=== PATIENT | male | born 1940 | race Caucasian/White ===

== ENCOUNTER 2021-09-07 12:11 | Outpatient (CLI) | payer MEDICARE | END 2021-09-07 12:12 | disposition home or self-care (01) | LOC: TBSIIMAG 12:11 | PROVIDERS: ATTEND Neurological Surgery | DX: M47.812 Spondylosis without myelopathy or radiculopathy, cervical region (principal); M47.816 Spondylosis without myelopathy or radiculopathy, lumbar region; M48.061 Spinal stenosis, lumbar region without neurogenic claudication; M51.36 Other intervertebral disc degeneration, lumbar region; M51.37 Other intervertebral disc degeneration, lumbosacral region; M48.07 Spinal stenosis, lumbosacral region; M48.02 Spinal stenosis, cervical region; R60.0 Localized edema | CPT/HCPCS: 72141; 72148 ==

== ENCOUNTER 2021-10-10 12:58 | Outpatient (CLI) | payer MEDICARE ==
[2021-10-10 14:39] LABS: Hemoglobin 12.2 g/dL (13.5-17.5); Mean Corpuscular HGB CONC 34.6 g/dL (32.0-36.0); Mean Corpuscular Hemoglobin 32.5 pg (27.0-33.0); Mean Corpuscular Volume 94.1 fl (81.2-95.1); Mean Platelet Volume 10.5 fl (7.4-10.4); Platelet Count 215 10x3/uL (150-450); RBC Distribution Width 12.6 % (11.5-14.5); Red Blood Cell (RBC) Count 3.75 10x6/uL (4.32-5.72); White Blood Cell (WBC) Count 10.1 10x3/uL (3.5-10.5)
[2021-10-10 15:08] LABS: Anion Gap 14 mmol/L (10-20); BUN (Urea Nitrogen) 41 mg/dL (8.4-25.7); Calc. Creatinine Clearance 0 mL/min (70-130); Calcium 10.1 mg/dL (7.8-10.44); Carbon Dioxide 21 mmol/L (23-31); Chloride 109 mmol/L (98-107); Estimated GFR 36; Glucose 183 mg/dL (83-110); Potassium 4.6 mmol/L (3.5-5.1); Sodium 139 mmol/L (136-145)
== END 2021-10-10 12:59 | disposition home or self-care (01) ==
LOC: LABBT 12:58
PROVIDERS: ATTEND Neurological Surgery
DX: Z01.818 Encounter for other preprocedural examination (principal); M47.12 Other spondylosis with myelopathy, cervical region; Z20.822 Contact with and (suspected) exposure to COVID-19
CPT/HCPCS: 80048; 85027; 87811; 93005; 93010

== ENCOUNTER 2021-10-10 13:00 | Inpatient (IN) | payer MEDICARE ==
[2021-10-15] MEDS ORDERED: Sodium Chloride 0.9% 100 ML ONE (08:34)
[2021-10-15] MEDS ORDERED: CEFAZOLIN 2 GM VIAL ONE (08:34)
[2021-10-15] MEDS ORDERED: Promethazine 25 MG TAB PO PRN (09:27)
[2021-10-15] MEDS ORDERED: Acetaminophen 325 MG TAB PO PRN (09:27)
[2021-10-15] MEDS ORDERED: Acetaminophen/Codeine 30-300mg Tablet PO PRN ×2 (09:27)
[2021-10-15] MEDS ORDERED: traMADol HCl 50 MG TAB PO PRN (09:27)
[2021-10-15] MEDS ORDERED: Ondansetron PF 4 MG/2 ML Vial IVP PRN (09:27)
[2021-10-15] MEDS ORDERED: Mag-Al 1200 mg/1200 mg/30 ML UDCUP PO PRN (09:27)
[2021-10-15] MEDS ORDERED: Cyclobenzaprine 10 MG TAB PO PRN (09:27)
[2021-10-15] MEDS ORDERED: Morphine 2 MG/ML VIAL SLOW IVP PRN (09:27)
[2021-10-15] MEDS ORDERED: Albuterol Sulfate 2.5 mg/3 ml Neb NEB PRN (09:30)
[2021-10-15] MEDS ORDERED: Dextrose 50% Abboject 50 ML SYRINGE SLOW IVP PRN (09:31)
[2021-10-15] MEDS ORDERED: Dextrose 5% in Water 1,000 ML IV PRN (09:31)
[2021-10-15] MEDS ORDERED: Bacitracin Zinc Ointment 30 gm TUBE ONE (09:49)
[2021-10-15] MEDS ORDERED: fentaNYL Citrate/PF 100 MCG/2 ML SYRINGE ONE ×2 (10:25→13:15)
[2021-10-15] MEDS ORDERED: Clindamycin/D5W 900 mg/50 ml Premix Bag ONE (10:39)
[2021-10-15] MEDS ORDERED: ePHEDrine 50 MG/ML VIAL ONE (10:51)
[2021-10-15] MEDS ORDERED: Rocuronium Bromide 10 MG/ML (10ML VIAL) ONE (10:51)
[2021-10-15] MEDS ORDERED: Ketorolac Tromethamine 30 MG/ML VIAL ONE (10:51)
[2021-10-15] MEDS ORDERED: Lidocaine 1% PF 5 ML VIAL ONE (10:51)
[2021-10-15] MEDS ORDERED: Phenylephrine 10 MG/ML VIAL ONE (10:51)
[2021-10-15] MEDS ORDERED: Dexamethasone 20 MG/5 ML VIAL ONE (10:51)
[2021-10-15] MEDS ORDERED: Ondansetron PF 4 MG/2 ML Vial ONE (10:51)
[2021-10-15] MEDS ORDERED: PROPOFOL 200 MG/20 ML VIAL ONE (10:51)
[2021-10-15] MEDS ORDERED: SUGAMMADEX SODIUM 200 MG/2 ML VIAL ONE ×2 (11:58→13:00)
[2021-10-15] MEDS ORDERED: Fentanyl 100 MCG/2 ML VIAL ONE (13:47)
[2021-10-15] MEDS ORDERED: Ondansetron HCl/PF 4 MG/2 ML Vial IVP PRN (14:39)
[2021-10-15] MEDS ORDERED: Promethazine HCl 25 MG/ML VIAL IVPB PRN (14:39)
[2021-10-15] MEDS ORDERED: Promethazine HCl 25 MG/ML VIAL IM PRN (14:39)
[2021-10-15 17:03] VITALS: BMI 29.3
[2021-10-15] MEDS: Clindamycin/D5W 900 MG in Premix Bag 1 BAG IVPB SCH ×2 (18:24→21:33)
[2021-10-15] MEDS: Sodium Chloride 0.9% 1,000 ML IV SCH ×2 (18:24→19:59)
[2021-10-15] MEDS ORDERED: Labetalol HCl 100 MG/20 ML VIAL SLOW IVP PRN (20:40)
[2021-10-15] MEDS ORDERED: Lisinopril/Hydrochlorothiazide 20 mg/12.5 mg Tablet PO SCH (21:00)
[2021-10-15] MEDS: Lisinopril/Hydrochlorothiazide 20 mg/12.5 mg Tablet PO SCH (21:33)
[2021-10-16 05:25] LABS: #Lymphocytes 2.1 thou/uL (1.20-3.40); #Monocytes 1.9 thou/uL (0.11-0.59); #Neutrophils 12.4 thou/uL (1.40-6.50); %Basophils 0.1 % (0.0-1.0); %Eosinophils 0.2 % (0.0-10.0); %Lymphocytes 12.8 % (21.0-51.0); %Monocytes 11.4 % (0.0-10.0); %Neutrophils 75.6 % (42.0-75.0); Hemoglobin 12.6 g/dL (14.0-18.0); Mean Corpuscular HGB CONC 33.3 g/dL (32.0-36.0); Mean Corpuscular Hemoglobin 33.5 pg (27.0-31.0); Mean Platelet Volume 7.3 fL (7.4-10.4); Platelet Count 226 thou/uL (130-400); RBC Distribution Width 11.5 % (11.5-14.5); Red Blood Cell (RBC) Count 3.77 mill/uL (4.70-6.10); White Blood Cell (WBC) Count 16.4 thou/uL (4.8-10.8)
[2021-10-16] MEDS: Clindamycin/D5W 900 MG in Premix Bag 1 BAG IVPB SCH ×3 (05:30→21:26)
[2021-10-16] MEDS: Tamsulosin HCl 0.4 MG CAP PO SCH (05:30)
[2021-10-16 05:42] LABS: Anion Gap 18 mmol/L (10-20); BUN (Urea Nitrogen) 36 mg/dL (8.4-25.7); Calc. Creatinine Clearance 32 mL/min (70-130); Calcium 9.2 mg/dL (7.8-10.44); Carbon Dioxide 20 mmol/L (23-31); Chloride 104 mmol/L (98-107); Estimated GFR 33; Glucose 158 mg/dL (83-110); Potassium 4.5 mmol/L (3.5-5.1); Sodium 137 mmol/L (136-145)
[2021-10-16] MEDS: HYDROcodone/Acetaminophen 10/325 mg Tablet PO PRN ×2 (07:17→11:35)
[2021-10-16] MEDS: Finasteride 5 MG TAB PO SCH (08:33)
[2021-10-16] MEDS ORDERED: Lisinopril/Hydrochlorothiazide 20 mg/12.5 mg Tablet PO SCH (09:00)
[2021-10-16] MEDS ORDERED: Non-Formulary Item 1 EACH (Biotin [Biotin] 5,000 MCG Tab.Rapdis) PO SCH (09:00)
[2021-10-16] MEDS ORDERED: Non-Formulary Item 1 EACH (Glucosamine/D3/Boswellia Serra [Osteo Bi-Flex One Per Day] 1 T PO SCH (09:00)
[2021-10-16] MEDS ORDERED: Loratadine 10 MG TAB PO SCH ×2 (09:00→10:30)
[2021-10-16] MEDS ORDERED: Non-Formulary Item 1 EACH (Fexofenadine Hcl [Fexofenadine Hcl] 180 MG Tablet) PO SCH (09:00)
[2021-10-16] MEDS ORDERED: Non-Formulary Item 1 EACH (Multivitamin [Multivitamins] 1 TABLET Tablet) PO SCH (09:00)
[2021-10-16] MEDS ORDERED: Dextrose 5% in Water 1,000 ML IV PRN (09:29)
[2021-10-16] MEDS ORDERED: Dextrose 50% Abboject 50 ML SYRINGE SLOW IVP PRN (09:29)
[2021-10-16] MEDS: Sodium Chloride 0.9% 1,000 ML IV SCH (10:18)
[2021-10-16] MEDS: Lisinopril/Hydrochlorothiazide 20 mg/12.5 mg Tablet PO SCH ×2 (10:20→21:26)
[2021-10-16] MEDS: Multivit, Therapeutic 1 TAB PO SCH (10:23)
[2021-10-16] MEDS: Meloxicam 7.5 MG TAB PO SCH (10:24)
[2021-10-16] MEDS: Chloraseptic Spray 180 ml Bottle PO PRN (22:35)
[2021-10-17] MEDS: HYDROcodone/Acetaminophen 10/325 mg Tablet PO PRN ×2 (03:00→16:38)
[2021-10-17] MEDS: Sodium Chloride 0.9% 1,000 ML IV SCH ×2 (03:37→14:49)
[2021-10-17] MEDS: Clindamycin/D5W 900 MG in Premix Bag 1 BAG IVPB SCH ×2 (06:42→13:52)
[2021-10-17] MEDS: Tamsulosin HCl 0.4 MG CAP PO SCH (06:42)
[2021-10-17] MEDS ORDERED: BOSWELLIA SERRA PO SCH (09:00)
[2021-10-17] MEDS ORDERED: GLUCOSAMINE PO SCH (09:00)
[2021-10-17] MEDS ORDERED: [UNRECOGNIZED DRUG - OTHER] PO SCH (09:00)
[2021-10-17] MEDS ORDERED: D3 PO SCH (09:00)
[2021-10-17] MEDS: Finasteride 5 MG TAB PO SCH (09:57)
[2021-10-17] MEDS: Multivit, Therapeutic 1 TAB PO SCH (09:57)
[2021-10-17] MEDS: Meloxicam 7.5 MG TAB PO SCH (09:57)
[2021-10-17] MEDS: Lisinopril/Hydrochlorothiazide 20 mg/12.5 mg Tablet PO SCH ×2 (09:57→21:09)
[2021-10-17] MEDS: Dexamethasone 4 mg/ml Vial SLOW IVP SCH ×3 (10:08→21:09)
[2021-10-17 10:18] LABS: #Eosinphils 0.1 thou/uL (0.0-0.7); #Lymphocytes 2.7 thou/uL (1.20-3.40); #Monocytes 1.3 thou/uL (0.11-0.59); %Basophils 0.2 % (0.0-1.0); %Eosinophils 1.1 % (0.0-10.0); %Lymphocytes 20.3 % (21.0-51.0); %Monocytes 9.7 % (0.0-10.0); %Neutrophils 68.7 % (42.0-75.0); Hemoglobin 11.5 g/dL (14.0-18.0); Mean Corpuscular HGB CONC 32.8 g/dL (32.0-36.0); Mean Corpuscular Hemoglobin 33.1 pg (27.0-31.0); Mean Platelet Volume 7.5 fL (7.4-10.4); Platelet Count 204 thou/uL (130-400); RBC Distribution Width 11.5 % (11.5-14.5); Red Blood Cell (RBC) Count 3.48 mill/uL (4.70-6.10); White Blood Cell (WBC) Count 13.1 thou/uL (4.8-10.8)
[2021-10-17 10:34] LABS: Anion Gap 16 mmol/L (10-20); BUN (Urea Nitrogen) 34 mg/dL (8.4-25.7); Calc. Creatinine Clearance 37 mL/min (70-130); Carbon Dioxide 24 mmol/L (23-31); Chloride 99 mmol/L (98-107); Estimated GFR 39; Glucose 123 mg/dL (83-110); Potassium 4.5 mmol/L (3.5-5.1); Sodium 134 mmol/L (136-145)
[2021-10-17] MEDS: HumaLOG 300 UNITS/3 ML VIAL SC PRN ×2 (12:20→18:08)
[2021-10-17] MEDS ORDERED: Polyethylene Glycol 3350 17 GM Packet PO PRN (19:52)
[2021-10-17] MEDS: Chloraseptic Spray 180 ml Bottle PO PRN (21:09)
[2021-10-18] MEDS: HYDROcodone/Acetaminophen 10/325 mg Tablet PO PRN ×2 (00:06→06:51)
[2021-10-18] MEDS: Dexamethasone 4 mg/ml Vial SLOW IVP SCH ×2 (03:55→09:00)
[2021-10-18] MEDS: Sodium Chloride 0.9% 1,000 ML IV SCH ×2 (04:18→19:06)
[2021-10-18] MEDS: Tamsulosin HCl 0.4 MG CAP PO SCH (05:32)
[2021-10-18 05:55] LABS: #Lymphocytes 1.2 thou/uL (1.20-3.40); #Monocytes 0.5 thou/uL (0.11-0.59); %Basophils 0.1 % (0.0-1.0); %Eosinophils 0.1 % (0.0-10.0); %Lymphocytes 10.5 % (21.0-51.0); %Monocytes 4.1 % (0.0-10.0); %Neutrophils 85.2 % (42.0-75.0); Mean Corpuscular HGB CONC 33.5 g/dL (32.0-36.0); Mean Corpuscular Hemoglobin 33.6 pg (27.0-31.0); Mean Platelet Volume 7.5 fL (7.4-10.4); Platelet Count 213 thou/uL (130-400); RBC Distribution Width 11.3 % (11.5-14.5); Red Blood Cell (RBC) Count 3.56 mill/uL (4.70-6.10); White Blood Cell (WBC) Count 11.7 thou/uL (4.8-10.8)
[2021-10-18 06:07] LABS: Anion Gap 17 mmol/L (10-20); BUN (Urea Nitrogen) 45 mg/dL (8.4-25.7); Calc. Creatinine Clearance 35 mL/min (70-130); Calcium 9.5 mg/dL (7.8-10.44); Carbon Dioxide 21 mmol/L (23-31); Chloride 102 mmol/L (98-107); Estimated GFR 37; Glucose 193 mg/dL (83-110); Potassium 4.9 mmol/L (3.5-5.1); Sodium 135 mmol/L (136-145)
[2021-10-18] MEDS: Chloraseptic Spray 180 ml Bottle PO PRN (06:51)
[2021-10-18] MEDS: HumaLOG 300 UNITS/3 ML VIAL SC PRN ×2 (06:51→12:11)
[2021-10-18] MEDS: Finasteride 5 MG TAB PO SCH (08:56)
[2021-10-18] MEDS: Meloxicam 7.5 MG TAB PO SCH (08:56)
[2021-10-18] MEDS: Lisinopril/Hydrochlorothiazide 20 mg/12.5 mg Tablet PO SCH ×2 (08:56→19:28)
[2021-10-18] MEDS: Multivit, Therapeutic 1 TAB PO SCH (08:56)
[2021-10-18] MEDS: Loratadine 10 MG TAB PO SCH (08:56)
[2021-10-18] MEDS: Polyethylene Glycol 3350 17 GM Packet PO SCH (09:00)
[2021-10-18] MEDS ORDERED: Lactated Ringer's 500 ML IV SCH ×2 (19:00→21:30)
[2021-10-18] MEDS ORDERED: hydrALAZINE 20 MG/ML VIAL SLOW IVP PRN (20:33)
[2021-10-19] MEDS: Dexamethasone 4 mg/ml Vial SLOW IVP SCH ×2 (00:12→20:26)
[2021-10-19] MEDS: HYDROcodone/Acetaminophen 10/325 mg Tablet PO PRN ×2 (03:30→14:56)
[2021-10-19 05:23] LABS: #Lymphocytes 1.4 thou/uL (1.20-3.40); #Monocytes 0.8 thou/uL (0.11-0.59); #Neutrophils 10.5 thou/uL (1.40-6.50); %Basophils 0.1 % (0.0-1.0); %Eosinophils 0.1 % (0.0-10.0); %Lymphocytes 10.9 % (21.0-51.0); %Monocytes 6.4 % (0.0-10.0); %Neutrophils 82.6 % (42.0-75.0); Hemoglobin 11.5 g/dL (14.0-18.0); Mean Corpuscular HGB CONC 31.6 g/dL (32.0-36.0); Mean Corpuscular Hemoglobin 31.5 pg (27.0-31.0); Mean Corpuscular Volume 99.8 fL (78.0-98.0); Mean Platelet Volume 7.5 fL (7.4-10.4); Platelet Count 250 thou/uL (130-400); RBC Distribution Width 11.3 % (11.5-14.5); Red Blood Cell (RBC) Count 3.65 mill/uL (4.70-6.10); White Blood Cell (WBC) Count 12.8 thou/uL (4.8-10.8)
[2021-10-19 05:38] LABS: Anion Gap 14 mmol/L (10-20); BUN (Urea Nitrogen) 54 mg/dL (8.4-25.7); Calc. Creatinine Clearance 36 mL/min (70-130); Calcium 9.5 mg/dL (7.8-10.44); Carbon Dioxide 23 mmol/L (23-31); Chloride 103 mmol/L (98-107); Estimated GFR 38; Glucose 218 mg/dL (83-110); Potassium 4.9 mmol/L (3.5-5.1); Sodium 135 mmol/L (136-145)
[2021-10-19] MEDS: Tamsulosin HCl 0.4 MG CAP PO SCH (06:19)
[2021-10-19] MEDS: HumaLOG 300 UNITS/3 ML VIAL SC PRN ×4 (06:20→20:26)
[2021-10-19] MEDS ORDERED: Dexamethasone 4 mg/ml Vial SLOW IVP SCH (08:00)
[2021-10-19] MEDS: Multivit, Therapeutic 1 TAB PO SCH (08:54)
[2021-10-19] MEDS: Polyethylene Glycol 3350 17 GM Packet PO SCH (08:54)
[2021-10-19] MEDS: Lisinopril/Hydrochlorothiazide 20 mg/12.5 mg Tablet PO SCH ×2 (08:55→20:24)
[2021-10-19] MEDS: Finasteride 5 MG TAB PO SCH (08:55)
[2021-10-19] MEDS: Meloxicam 7.5 MG TAB PO SCH (08:55)
[2021-10-19] MEDS: NPH, Human Insulin Isophane 300 UNIT/3 ML VIAL SC SCH (20:28)
[2021-10-20 05:07] LABS: #Basophils 0.1 thou/uL (0.0-0.2); #Lymphocytes 2.3 thou/uL (1.20-3.40); #Neutrophils 9.1 thou/uL (1.40-6.50); %Basophils 0.6 % (0.0-1.0); %Eosinophils 0.1 % (0.0-10.0); %Lymphocytes 18.3 % (21.0-51.0); %Monocytes 8.2 % (0.0-10.0); %Neutrophils 72.7 % (42.0-75.0); Hemoglobin 12.2 g/dL (14.0-18.0); Mean Corpuscular HGB CONC 33.8 g/dL (32.0-36.0); Mean Platelet Volume 7.5 fL (7.4-10.4); Platelet Count 280 thou/uL (130-400); RBC Distribution Width 11.2 % (11.5-14.5); Red Blood Cell (RBC) Count 3.59 mill/uL (4.70-6.10); White Blood Cell (WBC) Count 12.5 thou/uL (4.8-10.8)
[2021-10-20 05:31] LABS: Anion Gap 15 mmol/L (10-20); BUN (Urea Nitrogen) 56 mg/dL (8.4-25.7); Calc. Creatinine Clearance 41 mL/min (70-130); Calcium 9.5 mg/dL (7.8-10.44); Carbon Dioxide 23 mmol/L (23-31); Chloride 103 mmol/L (98-107); Estimated GFR 44; Glucose 165 mg/dL (83-110); Potassium 4.7 mmol/L (3.5-5.1); Sodium 136 mmol/L (136-145)
[2021-10-20] MEDS: Tamsulosin HCl 0.4 MG CAP PO SCH (05:58)
[2021-10-20] MEDS: HumaLOG 300 UNITS/3 ML VIAL SC PRN (05:59)
[2021-10-20 06:48] VITALS: BP 143/85; TEMP 98.1
[2021-10-20] MEDS: Lisinopril/Hydrochlorothiazide 20 mg/12.5 mg Tablet PO SCH (08:21)
[2021-10-20] MEDS: Dexamethasone 4 mg/ml Vial SLOW IVP SCH (08:21)
[2021-10-20] MEDS: Meloxicam 7.5 MG TAB PO SCH (08:21)
[2021-10-20] MEDS: Polyethylene Glycol 3350 17 GM Packet PO SCH (08:21)
[2021-10-20] MEDS: Finasteride 5 MG TAB PO SCH (08:22)
[2021-10-20] MEDS: Loratadine 10 MG TAB PO SCH (08:22)
[2021-10-20] MEDS: Multivit, Therapeutic 1 TAB PO SCH (08:22)
[2021-10-20] MEDS: NPH, Human Insulin Isophane 300 UNIT/3 ML VIAL SC SCH (08:33)
[2021-10-20] MEDS: HYDROcodone/Acetaminophen 10/325 mg Tablet PO PRN ×2 (10:45→18:10)
== END 2021-10-20 18:25 | disposition home health service (06) | DRG 454 ==
LOC: SURG A 10-15 07:25 → MSONC 10-15 16:22
PROVIDERS: ADMIT Physician Assistant; ATTEND Hospitalist
PROC: 0RG20A0 Fusion of 2 or more Cervical Vertebral Joints with Interbody Fusion Device, Anterior Approach, Anterior Column, Open Approach (ICD-10-PCS; principal; 2021-10-15)
PROC: 0RG2071 Fusion of 2 or more Cervical Vertebral Joints with Autologous Tissue Substitute, Posterior Approach, Posterior Column, Open Approach (ICD-10-PCS; 2021-10-15)
PROC: 0RB30ZZ Excision of Cervical Vertebral Disc, Open Approach (ICD-10-PCS; 2021-10-15)
DX: M47.12 Other spondylosis with myelopathy, cervical region (principal); N17.9 Acute kidney failure, unspecified; Z20.822 Contact with and (suspected) exposure to COVID-19; I10 Essential (primary) hypertension; N40.0 Benign prostatic hyperplasia without lower urinary tract symptoms; R49.0 Dysphonia; E11.9 Type 2 diabetes mellitus without complications; J44.9 Chronic obstructive pulmonary disease, unspecified; Z88.1 Allergy status to other antibiotic agents; Z91.030 Bee allergy status; Z91.018 Allergy to other foods; Z88.0 Allergy status to penicillin; Z88.2 Allergy status to sulfonamides; Z79.899 Other long term (current) drug therapy; Z79.51 Long term (current) use of inhaled steroids; Z79.84 Long term (current) use of oral hypoglycemic drugs
CPT/HCPCS: 36415; 36416; 76000; 80048; 85025; C1713; C1768; C1776; J0360; J0690; J1100; J1815; J1885; J2370; J2405; J2704; J3010; J3370; J3490; J7120

== ENCOUNTER 2021-10-31 12:58 | Outpatient (CLI) | payer MEDICARE | END 2021-10-31 12:59 | disposition home or self-care (01) | LOC: TBSIIMAG 12:58 | PROVIDERS: ATTEND Neurological Surgery | DX: M47.12 Other spondylosis with myelopathy, cervical region (principal); Z98.1 Arthrodesis status | CPT/HCPCS: 72040 ==

== ENCOUNTER 2022-01-01 14:09 | Outpatient (CLI) | payer MEDICARE | END 2022-01-01 14:10 | disposition home or self-care (01) | LOC: TBSIIMAG 14:09 | PROVIDERS: ATTEND Neurological Surgery | DX: M47.12 Other spondylosis with myelopathy, cervical region (principal); Z98.1 Arthrodesis status | CPT/HCPCS: 72040 ==

== ENCOUNTER 2022-06-20 09:42 | Outpatient (CLI) | payer MEDICARE | END 2022-06-20 09:43 | disposition home or self-care (01) | LOC: TBSIIMAG 09:42 | PROVIDERS: ATTEND Neurological Surgery | DX: M54.2 Cervicalgia (principal); M54.50 Low back pain, unspecified; M47.816 Spondylosis without myelopathy or radiculopathy, lumbar region; M51.36 Other intervertebral disc degeneration, lumbar region; M51.35 Other intervertebral disc degeneration, thoracolumbar region; M46.06 Spinal enthesopathy, lumbar region; M89.38 Hypertrophy of bone, other site; M47.812 Spondylosis without myelopathy or radiculopathy, cervical region; M50.323 Other cervical disc degeneration at C6-C7 level; M50.31 Other cervical disc degeneration, high cervical region; Z98.1 Arthrodesis status | CPT/HCPCS: 72040; 72100 ==